=== PATIENT | female | born 1960 | race Caucasian/White ===

== ENCOUNTER 2021-11-01 06:06 | Day surgery (SDC) | payer OTHER, SELFPAY ==
[2021-10-27 13:50] VITALS: BMI 29.2
[2021-11-01 06:33] VITALS: BP 163/94; PULSE 71; RESP 18; TEMP 36.2; O2SAT 96
[2021-11-01] MEDS: sodium chloride 0.9% 1,000 ML 30 ML IV (06:39)
--- NOTE | 2021-11-01 07:22 | W.PM.OPSFHP ---
Same Day Surgery H&P Indication for Procedure/HPI DATE OF PROCEDURE: November 01, 2021 CHIEF COMPLAINT/INDICATIONFOR SURGICAL PROCEDURE: EGD PREOP DIAGNOSIS: upper gi symptoms PLANNED PROCEDURE: Operation Date: 11/01/21 07:30 Proposed Procedures p [id number]/ K21.9 gerd(Not Applicable) - Joe Blue MD Medications/Allergies* Home Medications Medication Instructions Recorded Confirmed Type folic acid 1 mg tablet 1 mg PO DAILY 09/22/21 11/01/21 History methotrexate sodium 2.5 mg tablet 12.5 mg PO .WEEKLY tab 09/22/21 11/01/21 History prednisone 10 mg tablet 10 mg PO DAILY 09/22/21 11/01/21 History zolpidem 12.5 mg tablet,extended 12.5 mg PO DAILY tab 09/22/21 11/01/21 History release,multiphase cholecalciferol (vitamin D3) 100 100 mcg PO DAILY 10/27/21 11/01/21 History mcg (4,000 unit) capsule levothyroxine 112 mcg tablet 112 mcg PO DAILY 10/27/21 11/01/21 History Allergies/Adverse Reactions Allergy/AdvReac Type Severity Reaction Status Date / Time adhesive Allergy ALGY-Bliste Verified 11/01/21 06:22 r Cephalosporins Allergy ALGY-Rash Verified 11/01/21 06:22 clindamycin Allergy ALGY-Rash Verified 11/01/21 06:22 lincomycin Allergy AlGY-Rash Verified 11/01/21 06:22 metronidazole Allergy ALGY-Rash Verified 11/01/21 06:22 Penicillins Allergy ALGY-Rash Verified 11/01/21 06:22 Current Medications: Generic Name Dose Route Start Last Admin Trade Name Freq PRN Reason Stop Dose Admin Sodium Chloride 1,000 mls @ 30 mls/hr 11/01/21 06:30 11/01/21 06:39 Sodium Chloride 0.9% IV 11/02/21 06:29 30 mls/hr .Q24H REBECA Administration Pertinent History/Comorbid Conditions* Medical History (Updated 09/22/21 @ 12:58 by Joe Blue MD) Arthritis, rheumatoid GERD (gastroesophageal reflux disease) History of breast cancer Hypothyroidism Surgical History (Updated 09/22/21 @ 08:31 by Joe Blue MD) History of colonoscopy History of hysterectomy History of mastectomy Left Side History of reconstruction of left breast 2x Social History Smoking and tobacco status: never smoked Pertinent Exam Findings alert, oriented x 3 and regular rate & rhythm Recommendations Surgery/Procedure today Coding Level of Care Code Acute [employer] Super[employer] for Joey Carrillo
--- NOTE | 2021-11-01 07:31 | P.ANESASSM_ITS ---
Pre-Anesthetic Assessment Height/Weight: Height 1.63 m Weight 77.111 kg Temp Pulse Resp BP Pulse Ox 97.2 F L 71 18 163/94 96 11/01/21 06:33 11/01/21 06:33 11/01/21 06:33 11/01/21 06:33 11/01/21 06:33 Preop Diagnosis: upper gi symptoms Operation Date: 11/01/21 07:30 Proposed Procedures p [id number]/ K21.9 gerd(Not Applicable) - Joe Blue MD Familial anesthetic complications: nausea Was Beta Gt taken within 24 hours: N/A Was Clonidine taken within 24 hours: N/A Last intake: Intake Last Liquid Date 10/31/21 Last Liquid Time 20:00 Last Solid Date 10/31/21 Last Solid Time 17:00 Social Alcohol and No tobacco Exam alert, oriented x 3, clear to auscultation bilaterally and regular rate & rhythm Airway Submandibular: within normal limits Cervical ROM: within normal limits Mallampati: Class II Dentition: chipped, loose and full History/ROS Other Pulmonary None reported CV/HEM None reported None reported Hepatic None reported GI Gastroesophageal Reflux Disease (uncontrolled) Metabolic Thyroid Disease [facility] [place] Rheumatoid Arthritis Neuropsych None reported Anesthetic Plan ASA status: 2 Anesthesia: MAC Risk of > 500 ml blood loss (7ml/kg in children): No Medications/Allergies Home Medications Medication Instructions Recorded Confirmed Last Taken Type folic acid 1 mg tablet 1 mg PO DAILY 09/22/21 11/01/21 10/25/21 History methotrexate sodium 2.5 mg tablet 12.5 mg PO .WEEKLY tab 09/22/21 11/01/21 10/30/21 History prednisone 10 mg tablet 10 mg PO DAILY 09/22/21 11/01/21 10/21/21 History zolpidem 12.5 mg tablet,extended 12.5 mg PO DAILY tab 09/22/21 11/01/21 10/31/21 History release,multiphase cholecalciferol (vitamin D3) 100 100 mcg PO DAILY 10/27/21 11/01/21 10/25/21 History mcg (4,000 unit) capsule levothyroxine 112 mcg tablet 112 mcg PO DAILY 10/27/21 11/01/21 10/31/21 History Allergies Allergy/AdvReac Type Severity Reaction Status Date / Time adhesive Allergy ALGY-Bliste Verified 11/01/21 06:22 r Cephalosporins Allergy ALGY-Rash Verified 11/01/21 06:22 clindamycin Allergy ALGY-Rash Verified 11/01/21 06:22 lincomycin Allergy AlGY-Rash Verified 11/01/21 06:22 metronidazole Allergy ALGY-Rash Verified 11/01/21 06:22 Penicillins Allergy ALGY-Rash Verified 11/01/21 06:22 Current Medications Generic Name Dose Route Start Last Admin Trade Name Freq PRN Reason Stop Dose Admin Sodium Chloride 1,000 mls @ 30 mls/hr 11/01/21 06:30 11/01/21 06:39 Sodium Chloride 0.9% IV 11/02/21 06:29 30 mls/hr .Q24H REBECA Administration PFSH Anesthesia Medical History (Updated 09/22/21 @ 12:58 by Joe Blue MD) Arthritis, rheumatoid GERD (gastroesophageal reflux disease) History of breast cancer Hypothyroidism Surgical History History of colonoscopy History of hysterectomy History of mastectomy Left Side History of reconstruction of left breast 2x Social History Smoking and tobacco status: never smoked Data Anesthesia Cardiac Studies: No Data to Display
[2021-11-01 07:50] VITALS: BP 135/82; PULSE 85; RESP 18; TEMP 36.6; O2SAT 95
--- NOTE | 2021-11-01 07:51 | ANE.PACU2 ---
Inpatient post-anesthesia follow up: Airway intact: Yes Vital signs: Temperature 97.2 F Pulse Rate 71 Respiratory Rate 18 Blood Pressure 163/94 Pulse Oximetry 96 Oxygen Delivery Me thod Room Air Oxygen Flow Rate Fraction of Inspir ed Oxygen Hydration adequate: Yes Nausea and vomiting: No Pain level: 1 Mental status: Baseline
[2021-11-01 08:00] VITALS: BP 136/87; PULSE 75; RESP 18; O2SAT 96
== END 2021-11-01 08:20 | disposition home or self-care (01) ==
PROVIDERS: Family Provider Family Medicine; PCP Nurse Practitioner Family; Visit Provider Surgery
PROC: 0DJ08ZZ Inspection of Upper Intestinal Tract, Via Natural or Artificial Opening Endoscopic (ICD-10-PCS; CPT 43235; principal; 2021-11-01 07:30)
DX: K21.9 Gastro-esophageal reflux disease without esophagitis (principal); K20.90 Esophagitis, unspecified without bleeding; K44.9 Diaphragmatic hernia without obstruction or gangrene; K29.70 Gastritis, unspecified, without bleeding; M06.9 Rheumatoid arthritis, unspecified; Z85.3 Personal history of malignant neoplasm of breast; E03.9 Hypothyroidism, unspecified
CPT/HCPCS: 43239; 88305; 88342; J7030

== ENCOUNTER → 2023-10-01 12:46 | Outpatient (BNVA) | payer MEDICAID, SELFPAY | PROVIDERS: Family Provider Family Medicine; PCP Family Medicine; Visit Provider Family Medicine | DX: Z13.6 Encounter for screening for cardiovascular disorders (principal); E03.9 Hypothyroidism, unspecified; Z00.00 Encounter for general adult medical examination without abnormal findings; Z80.3 Family history of malignant neoplasm of breast; Z85.3 Personal history of malignant neoplasm of breast | CPT/HCPCS: 80053; 80061; 81162; 84443 ==

== ENCOUNTER → 2025-03-09 09:06 | Outpatient (BNVA) | payer MEDICAID, SELFPAY | PROVIDERS: Family Provider Family Medicine; PCP Family Medicine; Visit Provider Family Medicine | DX: Z00.00 Encounter for general adult medical examination without abnormal findings (principal); E03.9 Hypothyroidism, unspecified; K44.9 Diaphragmatic hernia without obstruction or gangrene; G47.00 Insomnia, unspecified | CPT/HCPCS: 80053; 80061; 84443; 85025 ==

== ENCOUNTER → 2025-07-08 14:01 | Outpatient (BNVA) | payer OTHER, SELFPAY | PROVIDERS: Family Provider Family Medicine; PCP Family Medicine; Visit Provider Family Medicine | DX: N39.0 Urinary tract infection, site not specified (principal); R39.15 Urgency of urination | CPT/HCPCS: 81000; 87086 ==